=== PATIENT | female | born 1965 | race Caucasian/White ===

== ENCOUNTER 2019-12-14 09:07 | Emergency (ER) | payer OTHER, SELFPAY ==
--- NOTE | 2019-12-14 09:11 | ED.URI ---
HPI - URI/Sore Throat General Chief Complaint: Upper Respiratory Infection Stated Complaint: Cough/shoulders/Back pain Time Seen by Provider: 12/14/19 09:11 Source: patient and RN notes reviewed History of Present Illness HPI Narrative: Patient is a 54-year-old female that presents the urgent care with complaints of dry cough, body aches, upper back pain. Patient states that the cough started last night and she is developed a headache. Patient states she has chronic back pain which may be causing some of the upper back pain but she believes it is from the cough. Patient is used 1 dose of DayQuil for her symptoms. Patient states she works nights. Denies any chest pain, wheezing, shortness of breath, fever, nausea, vomiting. No other acute complaints. No acute distress noted. Patient had a plan of care. Related Data Home Medications Medication Instructions Recorded Confirmed hydrochlorothiazide 12.5 mg PO BID 12/14/19 12/14/19 ibuprofen 800 mg PO TID PRN 12/14/19 12/14/19 Allergies Allergy/AdvReac Type Severity Reaction Status Date / Time No Known Allergies Allergy Verified 12/14/19 09:35 Review of Systems Review of Systems: Narrative: CONSTITUTIONAL: Denies fever, chills, or sweats. EYES: Denies visual changes, redness, or discharge. ENT: Denies rhinorrhea, congestion, sore throat, or otalgia. CARDIOVASCULAR: Denies chest pain, palpitations, or edema. RESPIRATORY: Reports of nonproductive cough without wheezing or dyspnea GASTROINTESTINAL: Denies abdominal pain, nausea, vomiting, or diarrhea. GENITOURINARY: Denies dysuria or hematuria. SKIN: Denies rash or itching. MUSCULOSKELETAL: Reports of upper back pain and body aches NEUROLOGIC: Denies headache, numbness, or weakness. All other systems reviewed are negative, except as documented in HPI. PMFSH Comments At the time of my signature, I reviewed and agree with the nursing past medical, surgical, social, and family history. There is no relevant family history pertinent to the patient complaint. Exam Narrative: Exam Narrative: GENERAL: This is a well-nourished, well-developed patient, in no apparent distress. HEAD: normocephalic, atraumatic. EYES: PERRL. Sclera clear/white. Vision is grossly intact. EARS: External ears normal, auditory canals clear and without drainage, TMs normal without perforation. Hearing grossly intact. NOSE: External nose normal with no obvious nasal discharge, nares without redness, no rhinorrhea. THROAT: Mucous membranes moist, posterior pharynx clear. Mild postnasal drainage NECK: Neck supple CARDIOVASCULAR: Regular rate and rhythm without murmurs, gallops, or rubs. RESPIRATORY: Clear to auscultation. Breath sounds equal bilaterally. No wheezes, rales, or rhonchi. SKIN: warm, intact with no suspicious lesions or rash, good texture and turgor. NEURO: awake, alert, and oriented to person, place and time. There were no obvious focal neurologic abnormalities. EXTREMITIES: No clubbing, cyanosis, or edema. Course Vital Signs Vital signs: Vital Signs Temperature 98.2 F 12/14/19 09:20 Pulse Rate 60 12/14/19 09:20 Respiratory Rate 20 12/14/19 09:20 Blood Pressure 154/94 H 12/14/19 09:20 Pulse Oximetry 99 12/14/19 09:20 Temperature 98.2 F 12/14/19 09:20 Pulse Rate 60 12/14/19 09:20 Respiratory Rate 20 12/14/19 09:20 Blood Pressure 154/94 H 12/14/19 09:20 Pulse Oximetry 99 12/14/19 09:20 Reviewed?patient is informed that they may have pre-hypertension or hypertension based on a blood pressure reading in the department. I recommend the patient call the primary care provider listed on their discharge instructions or a physician of their choice this week to arrange follow-up for further evaluation of possible pre-hypertension or hypertension. MDM - URI/Sore Throat MDM Narrative Medical decision making narrative: Advised the patient to use [id number] antihistamine such as Claritin or Zyrtec in conjunction wit
[2019-12-14 09:20] VITALS: BP 154/94; PULSE 60; RESP 20; TEMP 36.8; O2SAT 99
== END 2019-12-14 09:45 | disposition home or self-care (01) ==
PROVIDERS: Emergency Provider Nurse Practitioner Family; PCP Internal Medicine
DX: J06.9 Acute upper respiratory infection, unspecified (principal); I10 Essential (primary) hypertension
CPT/HCPCS: 99201; G0463

== ENCOUNTER 2019-12-18 09:17 | Emergency (ER) | payer OTHER, SELFPAY ==
--- NOTE | 2019-12-18 09:42 | ED.GENADULT ---
HPI - General Adult General Chief complaint: Upper Respiratory Infection Stated complaint: Cold/Flu Time Seen by Provider: 12/18/19 10:10 Source: patient Mode of arrival: ambulatory Limitations: no limitations History of Present Illness HPI narrative: 54-year-old female patient presents to the [facility] with complaints of cold symptoms for the past 4 days. Patient states that she was seen here on Tuesday when her symptoms first began and was told that she had beginnings of a cold and discharged her home and told her to take some [id number] Zyrtec and Flonase. Patient states that she has been taking it but states that she feels like her symptoms got worse this past Tuesday with body aches, chills and fevers. Patient states she continues to have a cough. Patient states she does have some rib pain when she coughs and a little bit of shortness of breath with the cough but denies any abdominal pain, nausea, vomiting or diarrhea. Patient states that she did get a flu shot this year. Patient states that she refused the flu swab when she was here on Tuesday. Related Data Home Medications Medication Instructions Recorded Confirmed hydrochlorothiazide 25 mg PO DAILY 12/14/19 12/14/19 ibuprofen-famotidine [Duexis] 1 tablet PO TID 12/18/19 12/18/19 Allergies Allergy/AdvReac Type Severity Reaction Status Date / Time No Known Allergies Allergy Verified 12/18/19 10:05 Review of Systems Review of Systems: Narrative: CONSTITUTIONAL: Positive subjective low-grade fever, chills, body aches sweats. EYES: Denies visual changes, redness, or discharge. ENT: Positive rhinorrhea, congestion, sore throat, denies otalgia. CARDIOVASCULAR: Denies chest pain, palpitations, or edema. RESPIRATORY: Positive cough with dyspnea. GASTROINTESTINAL: Denies abdominal pain, nausea, vomiting, or diarrhea. GENITOURINARY: Denies dysuria or hematuria. SKIN: Denies rash or itching. MUSCULOSKELETAL: Denies back pain, joint pain, or myalgia. NEUROLOGIC: Denies headache, numbness, or weakness. PSYCHIATRIC: Denies anxiety or depression. PMFSH Comments At the time of my signature I agree with nursing past medical history, surgical, social, and family history. There is no relevant family history pertinent to the presenting complaint. Exam Narrative: Exam Narrative: GENERAL: Well-appearing, well-nourished, and in no acute distress. HEAD: Normocephalic, atraumatic. No tenderness noted to frontal maxillary sinuses on palpation. EYES: PERRLA and EOMI. ENT: Nares with erythema and edema noted bilaterally, no rhinorrhea or epistaxis. Mucous membranes moist. Posterior pharynx with some postnasal drip but no erythema or tonsillar enlargement. Bilateral TMs are clear no erythema or foreign bodies in the canal. NECK: Supple. No lymphadenopathy CHEST: Clear to auscultation. No respiratory distress. Patient able talk clear complete sentences HEART: Regular rate and rhythm. No murmur heard. Normal peripheral pulses. ABDOMEN: Soft, nontender, nondistended, normal active bowel sounds. EXTREMITIES: Normal range of motion. No edema. SKIN: Warm, dry, no rash. NEURO: No focal deficits. Alert and oriented x3. Course Vital Signs Vital signs: Vital Signs Temperature 36.9 C 12/18/19 09:58 Pulse Rate 80 12/18/19 09:58 Respiratory Rate 14 12/18/19 09:58 Blood Pressure 137/90 12/18/19 09:58 Pulse Oximetry 98 12/18/19 09:58 Temperature 36.9 C 12/18/19 09:58 Pulse Rate 80 12/18/19 09:58 Respiratory Rate 14 12/18/19 09:58 Blood Pressure 137/90 12/18/19 09:58 Pulse Oximetry 98 12/18/19 09:58 Vital signs reviewed. The patient has been informed that they may have pre-hypertension or Hypertension based on a BP reading in the department. I recommend that the patient call the primary care provider listed on their discharge instructions or a physician of their choice this week to arrange follow up for further evaluation of possible pre-hypertension
[2019-12-18 09:58] VITALS: BP 137/90; PULSE 80; RESP 14; TEMP 36.9; O2SAT 98
== END 2019-12-18 10:22 | disposition home or self-care (01) ==
PROVIDERS: Emergency Provider Nurse Practitioner Family; PCP Internal Medicine
DX: J06.9 Acute upper respiratory infection, unspecified (principal); I10 Essential (primary) hypertension
CPT/HCPCS: 99213; G0463

== ENCOUNTER 2023-01-20 12:49 | Emergency (ER) | payer OTHER, SELFPAY ==
[2023-01-20 12:50] VITALS: BP 149/85; PULSE 90; RESP 18; TEMP 37.6; O2SAT 97
--- NOTE | 2023-01-20 13:03 | ED.URI ---
HPI - URI/Sore Throat General Chief Complaint: Upper Respiratory Infection Stated Complaint: cold/flu Time Seen by Provider: 01/20/23 13:03 Source: patient and RN notes reviewed History of Present Illness HPI Narrative: Patient is a 57-year-old female who presents to urgent care with complaints of left earache, chills and cough since yesterday. Patient has been taking NyQuil and Tylenol. States that she has also had severe headaches. Denies any fever, nausea or vomiting. Denies any other exposures. Other acute complaints. No acute distress noted. Patient aware of the plan of care. Some parts of this dictation were generated by voice recognition software and may contain typographical and/or grammatical inaccuracies. Related Data Home Medications Medication Instructions Recorded Confirmed hydrochlorothiazide 12.5 mg tablet 25 mg PO DAILY 12/14/19 12/14/19 buspirone 10 mg tablet 10 mg PO DIRECTED 01/20/23 01/20/23 meloxicam 7.5 mg tablet 7.5 mg PO DIRECTED 01/20/23 01/20/23 Allergies Allergy/AdvReac Type Severity Reaction Status Date / Time No Known Allergies Allergy Verified 01/20/23 13:03 Review of Systems Review of Systems: CONSTITUTIONAL: Reports of chills EYES: Denies visual changes, redness, or discharge. ENT: Reports of congestion postnasal drainage CARDIOVASCULAR: Denies chest pain, palpitations, or edema. RESPIRATORY: Reports of cough without dyspnea GASTROINTESTINAL: Denies abdominal pain, nausea, vomiting, or diarrhea. GENITOURINARY: Denies dysuria or hematuria. SKIN: Denies rash or itching. MUSCULOSKELETAL: Denies back pain, joint pain, or myalgia. NEUROLOGIC: Reports of headache All other systems reviewed are negative, except as documented in HPI. PMFSH Comments At the time of my signature, I reviewed and agree with the nursing past medical, surgical, social, and family history. There is no relevant family history pertinent to the patient complaint. Exam Narrative: GENERAL: This is a well-nourished, well-developed patient, appears fatigued HEAD: normocephalic, atraumatic. EYES: PERRL. Sclera clear/white. Vision is grossly intact. EARS: External ears normal, auditory canals clear and without drainage, TMs normal without perforation. Hearing grossly intact. NOSE: External nose normal with no obvious nasal discharge, nares without redness, clear rhinorrhea. THROAT: Mucous membranes moist, posterior pharynx clear. Mild postnasal drainage NECK: Neck supple, CARDIOVASCULAR: Regular rate and rhythm without murmurs, gallops, or rubs. RESPIRATORY: Mild cough on exam. Clear to auscultation. Breath sounds equal bilaterally. No wheezes, rales, or rhonchi. SKIN: warm, intact with no suspicious lesions or rash, good texture and turgor. NEURO: awake, alert, and oriented to person, place and time. There were no obvious focal neurologic abnormalities. EXTREMITIES: No clubbing, cyanosis, or edema. Course Course Level of Care: Express Care Visit Vital Signs Vital signs: Vital Signs Temperature 99.6 F 01/20/23 12:50 Pulse Rate 90 01/20/23 12:50 Respiratory Rate 18 01/20/23 12:50 Blood Pressure 149/85 H 01/20/23 12:50 Pulse Oximetry 97 01/20/23 12:50 Oxygen Delivery Room Air 01/20/23 12:50 Temperature 99.6 F 01/20/23 12:50 Pulse Rate 90 01/20/23 12:50 Respiratory Rate 18 01/20/23 12:50 Blood Pressure 149/85 H 01/20/23 12:50 Pulse Oximetry 97 01/20/23 12:50 Oxygen Delivery Room Air 01/20/23 12:50 Reviewed-Patient is informed that they may have pre-hypertension or hypertension based on a blood pressure reading in the department. I recommend the patient call the primary care provider listed on their discharge instructions or a physician of their choice this week to arrange follow-up for further evaluation of possible pre-hypertension or hypertension. MDM - URI/Sore Throat MDM Narrative Medical decision making narrative: Advised patient complete the s
== END 2023-01-20 13:26 | disposition home or self-care (01) ==
PROVIDERS: Emergency Provider Nurse Practitioner Family; PCP Internal Medicine
DX: J00 Acute nasopharyngitis [common cold] (principal); I10 Essential (primary) hypertension; F41.9 Anxiety disorder, unspecified
CPT/HCPCS: 99202; G0463